=== PATIENT | female | born 1960 | race African-American/Black ===

== ENCOUNTER 2017-03-17 15:35 | Emergency (ER) | payer OTHER ==
[2017-03-17 15:40] VITALS: BMI 37.2
--- NOTE | 2017-03-17 16:18 | PDOC ---
Attending Attestation - HPI HPI: 03/18/17 00:00 The patient is a 56 year old female, with no significant past medical history, who presents to the emergency department with multiple complaints. The patient reports that she had a mammogram done approximately two weeks ago. Since then, she reports a burning sensation in both of her breasts. She describes the burning sensation as diffuse but reports that it is not exacerbated or alleviated by any factors. She states that she has not taken any medications for these symptoms. The patient is additionally reports feeling lightheaded which she states is associated with changes in position. She also reports that she has noticed the appearance of small black dots on her arms which appear to be at the bases of her hair follicles. She denies fever, chills, nausea, vomiting or diarrhea. She denies shortness of breath or chest pain. She denies changes in vision, headache, dizziness or weakness. Allergies: None reported. Past Surgical History: None reported. Social History: Former smoker (quit in 2008). Denies alcohol or drug use. - Physicial Exam PE: 03/17/17 23:49 Vitals: Triage vital signs reviewed. General Appearance: No acute distress, well nourished, well developed. Head: Atraumatic, normocephalic. Eyes: Pupils equal round reactive, extraocular movements intact. Neck: Supple. No nuchal rigidity. Chest Wall: Nontender. Cardiac: Regular rate and rhythm. No murmurs, no rubs, no gallops Lungs: Clear to auscultation bilaterally, good air movement bilaterally Abdomen: Soft, nondistended, normal bowel sounds, nontender to palpation. Extremities: Full range of motion to all extremities, no cyanosis, clubbing, or edema. Skin: Subtle blackish appearance of pores on arms bilaterally. Warm and dry, no rashes or lesions, no petechiae. Neuro: AOX3; Cranial Nerves 2-12 grossly intact. Strength intact to all extremities. Sensation intact to all extremities. Psych: Normal mood, normal affect. - Medical Decision Making 03/17/17 17:43 Documentation prepared by Thalia Stinson, acting as medical insurance collector for Bull Lyles MD. <Thalia Stinson - Last Filed: 03/18/17 00:00> - Resident Resident Name: Ralf Johnson - ED Attending Attestation I have performed the following: I have examined & evaluated the patient, The case was reviewed & discussed with the resident, I agree w/resident's findings & plan, Exceptions are as noted - Medical Decision Making Patient with vague symptomatology of bilateral breast burning status post a gram and a nonspecific skin finding of what appears to be slight darkening to the pores of the hair follicles on her arms. She was also complaining of nonspecific lightheadedness her neurologic examination was normal her EKG and lab work was unremarkable. It is possible that this is related to patient's menopause however she was advised to follow-up with her primary care doctor and DIRECTOR OF [employer]OTEL next week Findings, the need for follow-up, strict return instructions discussed with patient. <Bull Lyles - Last Filed: 03/18/17 01:17> Heart Score/ECG Review #1 ECG reviewed & interpreted by me at: 17:18 (EKG performed at 17:18 demonstrates rate of 67 bpm, normal sinus rhythm, normal axis. No T wave inversions, no ST elevations.) <Thalia Stinson - Last Filed: 03/18/17 00:00>
--- NOTE | 2017-03-17 16:40 | PDOC ---
History of Present Illness - General Chief Complaint: Lightheaded Stated Complaint: BREAST PAIN, DIZZINESS Time Seen by Provider: 03/17/17 16:00 History Source: Patient Exam Limitations: No Limitations - History of Present Illness Initial Comments: 03/17/17 16:32 The patient is a 56F with a PMH of recently diagnosed HLD who presents with multiple complaints. She is complaining of lightheadedness, bilateral burning sensation in her breasts, and skin spots. The patient states that her burning sensation started after she had a mammogram 2 weeks ago. The burning is throughout her breasts and is not exacerbated or relieved by anything. She has not taken any medications for it. She is complaining of positional lightheadedness. She is also complaining of small black dots at the bases of her hair follicles which she is unsure of the origin. She denies any fever, chills, nausea, vomiting, CP, SOB, new swelling, and rashes. Past History - Past Medical History Allergies/Adverse Reactions: Allergies Allergy/AdvReac Type Severity Reaction Status Date / Time No Known Allergies Allergy Verified 03/17/17 15:41 Home Medications: Ambulatory Orders No Home Medications 0 dose .ROUTE UTDICT 09/20/13 Meclizine HCl 25 mg PO ONCE #20 tablet 03/17/17 COPD: No Hypercholesterolemia: Yes Other medical history: obesity - Immunization History Td Vaccination: No TDAP Vaccination: No Immunization Up to Date: No - Suicide/Smoking/Psychosocial Hx Smoking Status: Yes Smoking History: Former smoker Have you smoked in the past 12 months: No Number of Cigarettes Smoked Daily: 0 If you are a former smoker, when did you quit?: 2008 Information on smoking cessation initiated: No Hx Alcohol Use: No Drug/Substance Use Hx: No Substance Use Type: None Review of Systems - Review of Systems Able to Perform ROS?: Yes Comments:: 03/17/17 17:42 GENERAL/CONSTITUTIONAL: No fever or chills. No weakness. HEAD, EYES, EARS, NOSE AND THROAT: No change in vision. No ear pain or discharge. No sore throat. GASTROINTESTINAL: No nausea, vomiting, diarrhea, constipation, or abdominal pain. GENITOURINARY: No dysuria, frequency, hematuria, or change in urination. CARDIOVASCULAR: No chest pain, palpitations, or lightheadedness. RESPIRATORY: No cough, wheezing, shortness of breath, or hemoptysis. MUSCULOSKELETAL: No joint or muscle swelling or pain. No neck or back pain. SKIN: Positive for new black spots on No rash or lesions. NEUROLOGIC: Positive for burning sensation in b/l breasts. No headache, numbness , tingling, weakness, loss of consciousness, or change in strength/sensation. ENDOCRINE: No increased thirst. No abnormal weight change. HEMATOLOGIC/LYMPHATIC: No anemia, easy bleeding, or history of blood clots. ALLERGIC/IMMUNOLOGIC: No hives or skin allergy. *Physical Exam - Vital Signs Last Vital Signs Temp Pulse Resp BP Pulse Ox 97.7 F 86 19 160/96 97 03/17/17 15:38 03/17/17 15:38 03/17/17 15:38 03/17/17 15:38 03/17/17 15:38 - Physical Exam Comments: 03/17/17 17:45 GENERAL: Well developed, well nourished. Awake and alert. No acute distress. HEENT: Normocephalic, atraumatic. Hearing grossly normal. Moist mucous membranes. NECK: Supple. Full ROM. No JVD. Carotid pulses 2+ and symmetric, without bruits. No thyromegaly. No lymphadenopathy. CARDIOVASCULAR: Regular rate and rhythm. No murmurs, rubs, or gallops. Distal pulses are 2+ and symmetric. BREAST: No tenderness to palpation or burning sensation to palpation. No gross abnormalities. PULMONARY: No evidence of respiratory distress. Lungs clear to auscultation bilaterally. No wheezing, rales or rhonchi. ABDOMINAL: Soft. Non-tender. Non-distended. No rebound or guarding. No organomegaly. Normoactive bowel sounds. GENITOURINARY: No CVA tenderness bilaterally. MUSCULOSKELETAL: Normal range of motion at all joints. No bony deformities or tenderness. EXTREMITIES: No cyanosis. No clubbing. No edema. No calf tenderness. SKIN: Warm and dry. Normal capillary refill. No rashes. No jaundice. NEUROLOGICAL: Alert, awake, appropriate. Cranial nerves 2-12 intact. No deficits to light touch and temperature in face, upper extremities and lower extremities. No motor deficits in the in face, upper extremities and lower extremities. Normoreflexic in the upper and lower extremities. Normal speech. Gait is normal without ataxia. PSYCHIATRIC: Cooperative. Good eye contact. Appropriate mood and affect. ED Treatment Course - LABORATORY CBC & Chemistry Diagram: 03/17/17 16:50 03/17/17 16:50 Medical Decision Making - Medical Decision Making 03/17/17 17:46 The patient is a 56F with a PMH of HLD who presents with multiple complaints. 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 She understands this. However, I believe most of her complaints are related to post-menopaulal hormonal changes. I would like to r/o ACS and infection. Labs pending. 03/17/17 17:57 CBC WNL. CMP WNL. Trop negative. 03/17/17 18:17 Patient states she wants something for the burning sensation and the lightheadedness. I explained the importance of follow up with her PCP and OB. She agrees. Will d/c with meclizine. *DC/Admit/Observation/Transfer Diagnosis at time of Disposition: Light-headed feeling, Breast pain in female - Discharge Dispostion Disposition: HOME Condition at time of disposition: Stable Admit: No - Prescriptions Prescriptions: Meclizine HCl 25 mg PO ONCE #20 tablet - Referrals Referrals: Jose Angel Lawrence [Primary Care Provider] - - Patient Instructions Printed Discharge Instructions: Dizziness, Nonvertigo Additional Instructions: Please return to the ER if symptoms persist, worsen, or new symptoms arise. Please follow up with your primary care physician in 2-3 days. Please follow up with your thread grinder tool in the next week. Please return to the ER if you have any signs or symptoms of chest pain, shortness of breath, uncontrollable fever, chills, nausea, vomiting, numbness, tingling, or weakness in any part of your body, changes in vision, or slurred speech. Please take your medications as prescribed. - Post Discharge Activity
[2017-03-17 17:04] LABS: BASO # 0.1 # (0.1-1); BASO % 0.9 % (0-2.0); EOS % 0.8 % (0-4.5); LYMPH # 2.5 (8-40); MCH 27.7 pg (25.7-33.7); MCHC 33.9 g/dl (32.0-36.0); MEAN CELL VOLUME 81.6 fl (80-96); MEAN PLT VOLUME 8.4 fl (7.5-11.1); MONO # 0.6 # (3.8-10.2); NEUT # 2.8 # (42.8-82.8); NEUT % 46.3 % (42.8-82.8); PLATELET COUNT 253 K/MM3 (134-434); RDW 15.3 % (11.6-15.6)
[2017-03-17 17:37] LABS: ALBUMIN 3.5 g/dl (3.4-5.0); ANION GAP 7 (8-16); BILIRUBIN,TOTAL 0.6 mg/dL (0.2-1.0); CALCIUM 8.6 mg/dL (8.5-10.1); CO2 25 mmol/L (21-32); CREATININE 0.6 mg/dL (0.55-1.02); GLUCOSE,RANDOM 83 mg/dL (74-106); SGOT/AST 16 U/L (15-37); SGPT/ALT 21 U/L (12-78); TOT PROT 7.5 g/dl (6.4-8.2)
[2017-03-17 17:39] LABS: ALK PHOS 81 U/L (45-117); CPK 98 IU/L (26-192); TROPONIN I < 0.02 ng/ml (0.00-0.05)
[2017-03-17 18:37] VITALS: BP 126/77; PULSE 74; TEMP 98.6
--- NOTE | 2017-03-18 17:09 | EKG ---
Test Reason : Blood Pressure : / mmHG Vent. Rate : 067 BPM Atrial Rate : 067 BPM P-R Int : 164 ms QRS Dur : 082 ms QT Int : 398 ms P-R-T Axes : 060 010 026 degrees QTc Int : 420 ms NORMAL SINUS RHYTHM POSSIBLE LEFT ATRIAL ENLARGEMENT BORDERLINE ECG WHEN COMPARED WITH ECG OF 05-JUL-2014 09:46, NO SIGNIFICANT CHANGE WAS FOUND Confirmed by MEHRDAD MARIN MD ([id number]) on 03/18/2017 5:09:16 PM Referred By: Confirmed By:MEHRDAD MARIN MD
== END 2017-03-17 18:37 | disposition home or self-care (01) ==
LOC: JER 15:35
DX: R42 Dizziness and giddiness (principal); N64.4 Mastodynia; E78.5 Hyperlipidemia, unspecified
CPT/HCPCS: 36415; 80053; 82550; 84484; 85025; 93005; 93010; 99282-25

== ENCOUNTER 2017-08-30 09:07 | Emergency (ER) | payer OTHER ==
[2017-08-30 09:16] VITALS: BP 146/82; PULSE 69; TEMP 98.3; BMI 38.2
--- NOTE | 2017-08-30 09:23 | PDOC ---
History of Present Illness - General Chief Complaint: Rash Stated Complaint: RASH Time Seen by Provider: 08/30/17 09:21 History Source: Patient Exam Limitations: No Limitations - History of Present Illness Initial Comments: CHIEF COMPLAINT: 56 y/o female with no significant PMH c/o rash to face. HISTORY OF PRESENT ILLNESS: The patient began using a new facial lotion a few days ago and noticed an itchy rash to her cheek bones the next day. She stopped the cream a few days ago but the rash is still present. She denies facial swelling, tongue swelling, difficulty breathing, SOB, cough and all other symptoms. She has not taken any medications for the rash. Vital signs on arrival are within normal limits. REVIEW OF SYSTEMS: GENERAL/CONSTITUTIONAL: No fever/chills. No weakness. No weight change. HEAD, EYES, EARS, NOSE AND THROAT: No change in vision. No ear pain or discharge. No sore throat. CARDIOVASCULAR: No chest pain or shortness of breath. RESPIRATORY: No cough, wheezing, or hemoptysis. MUSCULOSKELETAL: No joint or muscle swelling or pain. No neck or back pain. SKIN: +itchy rash to face PHYSICAL EXAM: VITAL_SIGNS: within normal limits GENERAL_APPEARANCE: alert, cooperative, mild obvious discomfort. ENT: No angioedema. No tongue swelling. Airway patent LUNGS: CTAB EXTREMITIES: good pulse in injured extremity, affected area on extremity has mild erythema, mild swelling, mild tenderness and no abrasions\lacerations. SKIN: Few scattered papules to b/l maxilla area. No surrounding erythema or streaking. Past History - Past Medical History Allergies/Adverse Reactions: Allergies Allergy/AdvReac Type Severity Reaction Status Date / Time No Known Allergies Allergy Verified 08/30/17 09:12 Home Medications: Ambulatory Orders Diphenhydramine HCl/Zinc Acet [Benadryl 2% Cream] 1 applic TP TID #1 tube CVA: No COPD: No Hypercholesterolemia: Yes - Immunization History Td Vaccination: No TDAP Vaccination: No Immunization Up to Date: No - Suicide/Smoking/Psychosocial Hx Smoking Status: Yes Smoking History: Former smoker Have you smoked in the past 12 months: No Number of Cigarettes Smoked Daily: 0 If you are a former smoker, when did you quit?: 2008 Information on smoking cessation initiated: No Hx Alcohol Use: No Drug/Substance Use Hx: No Substance Use Type: None *Physical Exam - Vital Signs Last Vital Signs Temp Pulse Resp BP Pulse Ox 98.3 F 69 18 146/82 100 08/30/17 09:13 08/30/17 09:13 08/30/17 09:13 08/30/17 09:13 08/30/17 09:13 Medical Decision Making - Medical Decision Making A/P: 56 y/o female with allergic reaction to new face lotion. Will send rx for benadryl cream. Instructed her to d/c the lotion. Instructed her to f/u with her doctor and return to the ER with any worsening or concerning symptoms. The patient verbalizes understanding of all instructions, has no further questions and is awaiting discharge. *DC/Admit/Observation/Transfer Diagnosis at time of Disposition: Minor allergic reaction - Discharge Dispostion Disposition: HOME Condition at time of disposition: Good - Referrals Referrals: Liborio Hale MD [Primary Care Provider] - - Patient Instructions Printed Discharge Instructions: DI for General Allergic Reactions Additional Instructions: Discharge Instructions: -Do not use facial lotion anymore -Use benadryl cream as prescribed until symptoms improve -Use over the counter Artificial Tears to help with itchy eyes -Follow up with your doctor within 1 week -Return to the ER with any worsening or concerning symptoms - Post Discharge Activity
== END 2017-08-30 10:07 | disposition home or self-care (01) ==
LOC: JERFT 09:07
DX: L23.2 Allergic contact dermatitis due to cosmetics (principal); T49.8X5A Adverse effect of other topical agents, initial encounter; Y92.038 Other place in apartment as the place of occurrence of the external cause
CPT/HCPCS: 99281-25

== ENCOUNTER 2017-11-19 21:46 | Emergency (ER) | payer OTHER ==
[2017-11-19 22:21] VITALS: TEMP 98.4; BMI 38.4
[2017-11-19] MEDS ORDERED: ACETAMINOPHEN 325 MG TABLET (FP) PO ONE (23:00)
[2017-11-19 23:18] VITALS: BP 128/70; PULSE 65
--- NOTE | 2017-11-19 23:30 | PDOC ---
History of Present Illness - General Chief Complaint: Blood Pressure Problem Stated Complaint: Blood Pressure Problem Time Seen by Provider: 11/19/17 22:52 History Source: Patient Exam Limitations: No Limitations - History of Present Illness Initial Comments: 11/19/17 23:27 The patient is a 57F with a PMH of HLD who presents to the ER with complaints of suprapubic pain and gas. The patient states that she saw her PCP this morning for gas and suprapubic pain and he sent a UA and referred her to a GI specialist. She denies any current GI complaints and denies CP, SOB, fever, chills, nausea, vomiting, vaginal bleeding and vaginal discharge. Past History - Past Medical History Allergies/Adverse Reactions: Allergies Allergy/AdvReac Type Severity Reaction Status Date / Time No Known Allergies Allergy Verified 08/30/17 09:12 Home Medications: Ambulatory Orders Diphenhydramine HCl/Zinc Acet [Benadryl 2% Cream] 1 applic TP TID #1 tube CVA: No COPD: No DVT: No Hypercholesterolemia: Yes - Immunization History Td Vaccination: No TDAP Vaccination: No Immunization Up to Date: No - Suicide/Smoking/Psychosocial Hx Smoking Status: Yes Smoking History: Former smoker Have you smoked in the past 12 months: No Number of Cigarettes Smoked Daily: 0 If you are a former smoker, when did you quit?: 2009 Information on smoking cessation initiated: No Hx Alcohol Use: No Drug/Substance Use Hx: No Substance Use Type: None Review of Systems - Review of Systems Able to Perform ROS?: Yes Comments:: 11/20/17 00:20 GENERAL/CONSTITUTIONAL: No fever or chills. No weakness. HEAD, EYES, EARS, NOSE AND THROAT: No change in vision. No ear pain or discharge. No sore throat. CARDIOVASCULAR: No chest pain, palpitations, or lightheadedness. RESPIRATORY: No cough, wheezing, shortness of breath, or hemoptysis. GASTROINTESTINAL: Positive for gas and suprapubic pain. No nausea, vomiting, diarrhea, or constipation. GENITOURINARY: No dysuria, frequency, hematuria, or change in urination. MUSCULOSKELETAL: No joint or muscle swelling or pain. No neck or back pain. SKIN: No rash or lesions. NEUROLOGIC: No headache, numbness, tingling, weakness, loss of consciousness, or change in strength/sensation. ENDOCRINE: No increased thirst. No abnormal weight change. HEMATOLOGIC/LYMPHATIC: No anemia, easy bleeding, or history of blood clots. ALLERGIC/IMMUNOLOGIC: No hives or skin allergy. Is the patient limited Faroese proficient: No *Physical Exam - Vital Signs Last Vital Signs Temp Pulse Resp BP Pulse Ox 98.4 F 65 18 128/70 99 11/19/17 22:15 11/19/17 23:16 11/19/17 23:16 11/19/17 23:16 11/19/17 23:16 - Physical Exam Comments: 11/20/17 00:21 GENERAL: Well developed, well nourished. Awake and alert. No acute distress. HEENT: Normocephalic, atraumatic. Hearing grossly normal. Moist mucous membranes. PERRLA, EOMI. No conjunctival pallor. Sclera are non-icteric. NECK: Supple. Full ROM. No JVD. CARDIOVASCULAR: Regular rate and rhythm. No murmurs, rubs, or gallops. PULMONARY: No evidence of respiratory distress. Lungs clear to auscultation bilaterally. No wheezing, rales or rhonchi. ABDOMINAL: Soft. Tenderness to deep palpation in suprapubic abdomen. Non- distended. No rebound or guarding. GENITOURINARY: No CVA tenderness bilaterally. MUSCULOSKELETAL: Normal range of motion at all joints. No bony deformities or tenderness. EXTREMITIES: No cyanosis. No clubbing. No edema. No calf tenderness or swelling. SKIN: Warm and dry. Normal capillary refill. No rashes. No jaundice. NEUROLOGICAL: Alert, awake, appropriate. Cranial nerves 2-12 intact. Normal speech. Gait is normal without ataxia. PSYCHIATRIC: Cooperative. Good eye contact. Appropriate mood and affect. Medical Decision Making - Medical Decision Making 11/20/17 00:25 The patient is a 57F with a PMH of HLD who presents to the ER for suprapubic pain and resolved gas. I have instructed her to f/u with her GI doctor. Pending UA. Pt had also made a complaint that her BP was elevated. BP in the room was 128/70's. 11/20/17 00:25 UA negative. Will d/c pt with PCP f/u. *DC/Admit/Observation/Transfer Diagnosis at time of Disposition: Suprapubic pain - Discharge Dispostion Disposition: HOME Condition at time of disposition: Stable Decision to Admit order: No - Referrals Referrals: Liborio Hale MD [Primary Care Provider] - - Patient Instructions Printed Discharge Instructions: GERD Diet Additional Instructions: Please follow up with your primary care physician in 2-3 days. Your urinalysis in the ER was normal (meaning no infection). Please return to the ER if you have any signs or symptoms of chest pain, shortness of breath, uncontrollable fever, chills, nausea, vomiting, numbness, tingling, or weakness in any part of your body, changes in vision, or slurred speech. Please return to the ER if symptoms persist, worsen, or new symptoms arise. - Post Discharge Activity
[2017-11-19] MEDS ORDERED: ACETAMINOPHEN 325 MG TABLET (FP) ONE (23:32)
[2017-11-20 00:11] LABS: URINE APPEARANCE CLEAR; URINE BILIRUBIN NEGATIVE (<2.0 mg/dL); URINE COLOR YELLOW; URINE GLUCOSE (UA) NEGATIVE (NEGATIVE); URINE KETONE NEGATIVE (NEGATIVE)
[2017-11-20 00:12] LABS: URINE LEUK ESTERASE NEGATIVE (NEGATIVE); URINE NITRITE NEGATIVE (NEGATIVE); URINE PROTEIN NEGATIVE (NEGATIVE); URINE UROBILINOGEN NORMAL mg/dL (0.2-1.0)
--- NOTE | 2017-11-20 00:53 | PDOC ---
Attending Attestation - Resident Resident Name: Ralf Johnson - ED Attending Attestation I have performed the following: I have examined & evaluated the patient, The case was reviewed & discussed with the resident, I agree w/resident's findings & plan, Exceptions are as noted - Medical Decision Making 11/20/17 00:53 Pt was treated and released <RubiGibran - Last Filed: 11/20/17 00:52> - HPI HPI: 11/20/17 00:58 The patient is a 57 year old female with a significant PMH of HLD presenting with suprapubic gas pain since earlier today. Patient states she saw her PCP for similar symptoms. As per patient, the PCP did a UA but did not tell her the results. Patient has no current complaints. The patient denies chest pain, shortness of breath, headache and dizziness. Denies fever, chills, nausea, vomit, diarrhea and constipation. Denies vaginal bleeding or discharge, dysuria, frequency, urgency and hematuria. Allergies: NKA Past surgical history: None reported. Social history: No reported alcohol, drug, or cigarette use. PCP: Dr. Hale - Physicial Exam PE: 11/20/17 00:53 GENERAL: Well-appearing, well-nourished. No apparent distress. HEENT: Normocephalic, atraumatic. PERRL, EOM intact. CARDIOVASCULAR: Normal S1, S2. Regular rate and rhythm. PULMONARY: Clear to auscultation bilaterally. ABDOMEN: Soft, non-distended. (+) Mild suprapubic tenderness. EXTREMITIES: Normal ROM in all four extremities. No gross deformities. SKIN: Warm, dry. No rash NEUROLOGICAL: No focal neurological deficits. <Cynthia Troy - Last Filed: 11/20/17 00:58>
== END 2017-11-20 00:48 | disposition home or self-care (01) ==
LOC: JER 21:46
DX: R10.30 Lower abdominal pain, unspecified (principal); R14.1 Gas pain; E78.5 Hyperlipidemia, unspecified
CPT/HCPCS: 81003; 87086; 99281-25

== ENCOUNTER 2018-03-02 21:27 | Emergency (ER) | payer OTHER ==
[2018-03-02 21:38] VITALS: TEMP 99; BMI 36.0
[2018-03-02 22:20] VITALS: BP 108/62; PULSE 63
--- NOTE | 2018-03-02 22:21 | PDOC ---
History of Present Illness - General Chief Complaint: Chest Pain Stated Complaint: CHEST PAIN Time Seen by Provider: 03/02/18 21:51 - History of Present Illness Initial Comments: 03/02/18 23:17 57 year old female with no significant PMH presenting with one episode of mild chest pain that self resolved earlier today but two months of sleep trouble where she has trouble initiating sleep at night but is able to stay asleep once she is asleep. She has lost weight over the past two years because of an active diet but denies substance use or OTC weight loss supplements. Denies sweating, fevers, chills, nausea, vomiting, diarrhea, SOB, or other symptoms. Past History - Past Medical History Allergies/Adverse Reactions: Allergies Allergy/AdvReac Type Severity Reaction Status Date / Time No Known Allergies Allergy Verified 03/02/18 21:30 Home Medications: Ambulatory Orders traZODone HCL [Trazodone HCl] 50 mg PO HS 03/02/18 CVA: No COPD: No DVT: No Hypercholesterolemia: Yes - Immunization History Td Vaccination: No TDAP Vaccination: No Immunization Up to Date: No - Suicide/Smoking/Psychosocial Hx Smoking Status: Yes Smoking History: Former smoker Have you smoked in the past 12 months: No Number of Cigarettes Smoked Daily: 0 If you are a former smoker, when did you quit?: 2008 Information on smoking cessation initiated: No Hx Alcohol Use: No Drug/Substance Use Hx: No Substance Use Type: None Review of Systems - Review of Systems Constitutional: No: Chills, Diaphoresis, Fever HEENTM: No: Eye Pain, Blurred Vision Respiratory: No: Cough, Orthopnea, Shortness of Breath Cardiac (ROS): No: Edema, Irregular Heart Rate ABD/GI: No: Diarrhea, Nausea, Vomiting : No: Burning, Dysuria, Discharge Musculoskeletal: No: Back Pain, Gout, Joint Pain Integumentary: No: Bruising, Erythema, Flushing, Lesions, Lumps Neurological: No: Numbness, Paresthesia, Tremors Psychiatric: No: Anxiety, Depression Endocrine: No: Flushing, Increased Urine Hematologic/Lymphatic: No: Anemia, Blood Clots, Easy Bleeding *Physical Exam - Vital Signs Last Vital Signs Temp Pulse Resp BP Pulse Ox 99.0 F 63 18 108/62 100 03/02/18 21:31 03/02/18 22:19 12/08/18 22:19 03/02/18 22:19 03/02/18 22:19 - Physical Exam General Appearance: Yes: Nourished, Appropriately Dressed. No: Apparent Distress HEENT: positive: EOMI, CAS[place], Normal ENT Inspection, Normal Voice Neck: positive: Trachea midline, Normal Thyroid, Supple. negative: Tender, Rigid Respiratory/Chest: positive: Lungs Clear, Normal Breath Sounds. negative: Chest Tender, Respiratory Distress, Accessory Muscle Use Cardiovascular: positive: Regular Rhythm, Regular Rate Gastrointestinal/Abdominal: positive: Normal Bowel Sounds, Flat, Soft. negative : Tender Lymphatic: negative: Adenopathy, Tenderness Musculoskeletal: positive: Normal Inspection. negative: CVA Tenderness, Decreased Range of Motion Extremity: positive: Normal Capillary Refill, Normal Inspection, Normal Range of Motion. negative: Tender Integumentary: positive: Normal Color, Dry, Warm Neurologic: positive: Fully Oriented, Alert, Normal Mood/Affect, Normal Response , Motor Strength 5/5 Moderate Sedation - Procedure Monitoring Vital Signs: Procedure Monitoring Vital Signs Temperature 99.0 F 03/02/18 21:31 Pulse Rate 63 03/02/18 22:19 Respiratory Rate 18 03/02/18 22:19 Blood Pressure 108/62 03/02/18 22:19 O2 Sat by Pulse Oximetry (%) 100 03/02/18 22:19 ED Treatment Course - LABORATORY CBC & Chemistry Diagram: 03/02/18 22:18 03/02/18 22:18 Medical Decision Making - Medical Decision Making 57 year old female with trouble falling asleep for the past two months and one episode of mild chest pain. All labs WNL and EKG showing rate 62, LA inteval 138 , QRS 100, QTc 401, normal axis, and no ST/ T wave changes. Will DC with PCP follow up. 03/02/18 23:23 *DC/Admit/Observation/Transfer Diagnosis at time of Disposition: Chest pain Qualifiers: Chest pain type: unspecified Qualified Code(s): R07.9 - Chest pain, unspecified Insomnia Qualifiers: Insomnia type: unspecified Qualified Code(s): G47.00 - Insomnia, unspecified - Discharge Dispostion Disposition: HOME Condition at time of disposition: Improved Decision to Admit order: No - Referrals Referrals: [facility] [place] [facility] [place] [facility] [Provider Group] - Patient Instructions Printed Discharge Instructions: DI for Atypical Chest Pain Additional Instructions: Please use your sleep medication and please follow up with you PCP. Please return to the ED if you have new or worsening symptoms. - Post Discharge Activity
[2018-03-02 22:30] LABS: BASO % 0.8 % (0-2.0); HEMATOCRIT 36.9 % (32.4-45.2); HEMOGLOBIN 13.1 GM/dL (10.7-15.3); LYMPH % 44.6 % (8-40); MCH 28.6 pg (25.7-33.7); MCHC 35.5 g/dl (32.0-36.0); MEAN CELL VOLUME 80.6 fl (80-96); MEAN PLT VOLUME 8.1 fl (7.5-11.1); MONO % 7.5 % (3.8-10.2); NEUT % 46.1 % (42.8-82.8); PLATELET COUNT 272 K/MM3 (134-434); RBC 4.57 M/mm3 (3.60-5.2); RDW 16.2 % (11.6-15.6); WHITE BLOOD COUNT 6.7 K/mm3 (4.0-10.0)
[2018-03-02 22:43] LABS: INR 1.11 (0.83-1.09); PROTHROMBIN TIME (PATIENT) 13.1 SEC (9.7-13.0)
[2018-03-02 22:57] LABS: ALBUMIN 3.5 g/dl (3.4-5.0); ALK PHOS 77 U/L (45-117); ANION GAP 7 MMOL/L (8-16); BILIRUBIN,TOTAL 0.5 mg/dL (0.2-1); BLOOD UREA NITROGEN 15 mg/dL (7-18); CALCIUM 8.6 mg/dL (8.5-10.1); CHLORIDE 104 mmol/L (98-107); CO2 29 mmol/L (21-32); CREATININE 0.7 mg/dL (0.55-1.3); GLUCOSE,RANDOM 80 mg/dL (74-106); MAGNESIUM 2.1 mg/dL (1.8-2.4); POTASSIUM 4.6 mmol/L (3.5-5.1); SGOT/AST 14 U/L (15-37); SGPT/ALT 19 U/L (13-61); SODIUM 141 mmol/L (136-145); TOT PROT 7.4 g/dl (6.4-8.2)
--- NOTE | 2018-03-02 23:25 | PDOC ---
Attending Attestation - Resident Resident Name: Marguerite Saucedocherylagustin - ED Attending Attestation I have performed the following: I have examined & evaluated the patient, The case was reviewed & discussed with the resident, I agree w/resident's findings & plan - Medical Decision Making 03/02/18 23:16 Pt states that she has been unable to sleep; when she mentioned this to her PMD , he wanted her to get an EKG. She recalled this today when she felt a momentary twinge of CP while she was sitting at a desk at work. Came to the ER to get checked out. She states that she had been on a diet eating smoothies and fruits dana small evening meal and soup. She lost 30 lbs. States that recently she stopped her diet because she thinks it may be causing her insomnia. Pt's labs, EKG, CXR all normal. Pt will be discharged back to her PMD. <Katia Waters - Last Filed: 03/02/18 23:26> - HPI HPI: 03/02/18 23:26 The patient is a 57 year old female, with no significant PMH who presents to the emergency department with chest pain this afternoon. Patient describes the chest pain this afternoon as sharp, lasting a few minutes that has now resolved. Patient denies any precipitating factors. Patient states she has not been sleeping well at home over the last few days. Patient admits to recent weight loss after changing her diet. Patient notes the chest pain has resolved on its own and is currently asymptomatic. Patients PCP told her to come to the ER for an EKG. The patient denies chest pain, shortness of breath, headache and dizziness. Denies fever, chills, nausea, vomit, diarrhea and constipation. Denies dysuria, frequency, urgency and hematuria. Allergies: NKA Past surgical history: None reported. Social history: No reported alcohol, drug or cigarette use. - Physicial Exam PE: 03/02/18 23:27 GENERAL: Awake, alert, and fully oriented, in no acute distress. (+) Overweight. HEAD: No signs of trauma EYES: PERRLA, EOMI, sclera anicteric, conjunctiva clear ENT: Auricles normal inspection, hearing grossly normal, nares patent, oropharynx clear without exudates. Moist mucosa NECK: Normal ROM, supple, no lymphadenopathy, JVD, or masses LUNGS: Breath sounds equal, clear to auscultation bilaterally. No wheezes, and no crackles HEART: Regular rate and rhythm, normal S1 and S2, no murmurs, rubs or gallops ABDOMEN: Soft, nontender, normoactive bowel sounds. No guarding, no rebound. No masses EXTREMITIES: Normal range of motion, no edema. No clubbing or cyanosis. No cords, erythema, or tenderness NEUROLOGICAL: Cranial nerves II through XII grossly intact. Normal speech, normal gait SKIN: Warm, Dry, normal turgor, no rashes or lesions noted. <Cynthia Troy - Last Filed: 03/02/18 23:27>
--- NOTE | 2018-03-03 17:16 | EKG ---
Test Reason : Blood Pressure : / mmHG Vent. Rate : 053 BPM Atrial Rate : 053 BPM P-R Int : 158 ms QRS Dur : 086 ms QT Int : 414 ms P-R-T Axes : 050 026 037 degrees QTc Int : 388 ms SINUS BRADYCARDIA OTHERWISE NORMAL ECG WHEN COMPARED WITH ECG OF 17-MAR-2017 17:18, NO SIGNIFICANT CHANGE WAS FOUND Confirmed by AYALA CHAVIRA MD ([id number]) on 03/03/2018 5:16:02 PM Referred By: Confirmed By:AYALA CHAVIRA MD
== END 2018-03-02 23:43 | disposition home or self-care (01) ==
LOC: JER 21:27
DX: R07.9 Chest pain, unspecified (principal); G47.00 Insomnia, unspecified
CPT/HCPCS: 36415; 71046-TC-FY; 80053; 82550; 83735; 84443; 84484; 85025; 85610; 93005; 93010; 99285-25

== ENCOUNTER 2018-12-18 21:08 | Observation (INO) | payer SELFPAY ==
[2018-12-18 21:12] VITALS: BMI 38.2
[2018-12-18] MEDS ORDERED: ASPIRIN 81 MG CHEWABLE TABLETS PO ONE (21:45)
[2018-12-18] MEDS ORDERED: ASPIRIN 81 MG CHEWABLE TABLETS ONE (22:27)
[2018-12-18] MEDS ORDERED: ACETAMINOPHEN 325 MG TABLET (FP) PO ONE (23:46)
[2018-12-18] MEDS ORDERED: ACETAMINOPHEN 325 MG TABLET (FP) ONE (23:49)
--- NOTE | 2018-12-18 23:56 | PDOC ---
History of Present Illness - General Chief Complaint: Chest Pain Stated Complaint: SEVERE CHEST PAIN Time Seen by Provider: 12/18/18 21:55 - History of Present Illness Initial Comments: 12/18/18 23:56 This is a 58 year old female with no significant PMH. She presented to the ER with complaints of episodic chest pain since this afternoon, and headaches over the past 1 week. She states that the chest pain is substernal, sudden in onset, intermittent in nature with 6 total episodes since yesterday and with each episode lasting for a few seconds. The pain is 7/10 in intensity, sharp in quality, non-radiating, and alleviated by applying pressure. She complains of associated dizziness, palpitations, and has not had a recent stress test or echo done. The headache is diffuse, started suddenly last week, constant in nature, pressing in quality, radiates to her left eye, and associated with itching on her scalp. She also complains of edema in her upper extremities, and dysuria for the past few days. She states that her PCP prescribed 20mg Lasix daily, today is her 9 day without any relief of her symptoms. Past History - Travel Traveled outside of the country in the last 30 days: No Close contact w/someone who was outside of country & ill: No - Past Medical History Allergies/Adverse Reactions: Allergies Allergy/AdvReac Type Severity Reaction Status Date / Time No Known Allergies Allergy Verified 12/18/18 21:12 Home Medications: Ambulatory Orders Aspirin [ASA -] 81 mg PO DAILY 12/19/18 CVA: No COPD: No DVT: No Hypercholesterolemia: Yes - Immunization History Td Vaccination: No TDAP Vaccination: No Immunization Up to Date: No - Psycho Social/Smoking Cessation Hx Smoking Status: Yes Smoking History: Never smoked Have you smoked in the past 12 months: No Number of Cigarettes Smoked Daily: 0 If you are a former smoker, when did you quit?: 2008 Hx Alcohol Use: No Drug/Substance Use Hx: No Substance Use Type: None Review of Systems - Review of Systems Constitutional: No: Symptoms Reported, See HPI, Chills, Diaphoresis, Fever, Loss of Appetite, Malaise, Night Sweats, Weakness, Weight Stable, Unintentional Wgt. Loss, Unexplained wgt Loss, Other HEENTM: No: Symptoms Reported, See HPI, Eye Pain, Blurred Vision, Tearing, Recent change in vision, Double Vision, Cataracts, Ear Pain, Ocular Prothesis, Ear Discharge, Nose Pain, Nose Congestion, Tinnitus, Nose Bleeding, Hearing Loss , Throat Pain, Throat Swelling, Mouth Pain, Dental Problems, Difficulty Swallowing, Mouth Swelling, Other Respiratory: No: Symptoms reported, See HPI, Cough, Orthopnea, Shortness of Breath, SOB with Exertion, SOB at Rest, Stridor, Wheezing, Productive cough, Hemoptysis, Other Cardiac (ROS): Yes: Chest Pain, Palpitations ABD/GI: No: Symptoms Reported, See HPI, Abdominal Distended, Abd. Pain w/ defecation, Blood Streaked Bowels, Constipated, Diarrhea, Difficulty Swallowing , Nausea, Poor Appetite, Poor Fluid Intake, Rectal Bleeding, Vomiting, Indigestion, Abdominal cramping, Tarry Stools, Other : Yes: Dysuria Musculoskeletal: No: Symptoms Reported, See HPI, Back Pain, Gout, Joint Pain, Joint Swelling, Muscle Pain, Muscle Weakness, Neck Pain, Joint Stiffness, Other Neurological: Yes: Headache, Dizziness Psychiatric: No: Anxiety, Depression, Frequent Crying, Stressors, Sleep Pattern Change, Emotional Problems, Mood Swings, Change in Appetite, Other Endocrine: No: Symptoms Reported, See HPI, Excessive Sweating, Flushing, Intolerance to Cold, Intolerance to Heat, Increased Hunger, Increased Thirst, Increased Urine, Unexplained Weight Gain, Unexplained Weight Loss, Change in Weight, Other Hematologic/Lymphatic: No: Symptoms Reported, See HPI, Anemia, Blood Clots, Easy Bleeding, Easy Bruising, Bleeding Diathesis, Lymph Node Abnormalities, Swollen Glands, Other *Physical Exam - Vital Signs Last Vital Signs Temp Pulse Resp BP Pulse Ox 98.3 F 65 18 140/87 98 12/18/18 21:09 12/18/18 21:09 12/18/18 21:09 12/18/18 21:09 12/18/18 21:09 - Physical Exam Comments:: 12/19/18 04:12 Orthostatic vitals: supine 131/69 (HR 86), sitting 124/75 (HR 90), standing 136/ 88 (HR 102) General: AOx3 Head: No signs of trauma, erythema Lungs: Clear B/L CVS: NSR RRR GI: Soft, suprapubic tenderness, no CVA tenderness Extremities: No edema noted Neuro: Motor 5/5 sensations intact Breast: No erythema, swelling, lumps, or axillary lymphadenopathy Heart Score/ECG Review - Electrocardiogram EKG: Normal - Age Age: 45-65 - Risk Factors Risk Factors Heart Score: Yes Hx Hypercholesterolemia, Yes Smoking History - Troponin Troponin: </= normal limit - ECG Intrepretation Rhythm: Regular Rhythm - [place]: Normal ED Treatment Course - LABORATORY CBC & Chemistry Diagram: 12/19/18 00:00 12/19/18 00:00 - RADIOLOGY Radiology Studies Ordered: Category Date Time Status HEAD CT WITHOUT CONTRAST [CT] Stat CT Scan 12/19/18 00:01 Ordered - Medications Given in the ED: ED Medications Discontinued Medications Generic Name Dose Route Start Last Admin Trade Name Freq PRN Reason Stop Dose Admin Aspirin 162 mg 12/18/18 21:45 12/18/18 22:45 Asa - PO 12/18/18 21:46 162 mg ONCE ONE Administration Medical Decision Making - Medical Decision Making 12/19/18 01:45 #Chest Pain - CBC/CMP - ASA 162mg - CXR - EKG: - Troponin x1 negative - d Dimer to r/o PE: 574 which is under the age adjusted threshold of 600, will not do Chest CTA #Headache - CT Head: NAP - Tylenol 650mg #Dysuria - UA: 12/19/18 01:53 Discharge - Discharge Information Problems reviewed: Yes Clinical Impression/Diagnosis: Chest pain, Suprapubic pain Condition: Guarded - Admission Yes - Follow up/Referral - Patient Discharge Instructions - Post Discharge Activity
--- NOTE | 2018-12-19 00:22 | PDOC ---
Documentation entered by Michelle Upton SCRIBE, acting as scribe for Riley Boss MD. Riley Boss MD: This documentation has been prepared by the Alexsandra patricia Xhesika, SCRIBE, under my direction and personally reviewed by me in its entirety. I confirm that the documentation accurately reflects all work, treatment, procedures, and medical decision making performed by me. Attending Attestation - Resident Resident Name: TeoenriqueMelo - ED Attending Attestation I have performed the following: I have examined & evaluated the patient, The case was reviewed & discussed with the resident, I agree w/resident's findings & plan, Exceptions are as noted - HPI HPI: 12/19/18 00:01 The patient is a 58 year old female with a significant PMH of HLD who presents to the emergency department for 1 day of chest pain. Patient notes she endorsed 6 episodes of chest pain lasting a few seconds before self resolving, described as severe and sharp. Patient notes 1 week of headache. The patient denies shortness of breath, and dizziness. Denies fever, chills, cough, nausea, vomiting, diarrhea and constipation. Denies dysuria, frequency, urgency and hematuria. Allergies: NKDA - Physicial Exam PE: 12/19/18 00:19 pt s awake, alert, obesse, nad nc, atr perrla, eomi no jvd cta rr no extr edema cn ii-xii groslly intact, motor:5/5x4, gait-stable - Medical Decision Making 12/19/18 00:20 Patient 58-year-old female with history of hypercholesterolemia who presents with multiple complains including atraumatic intermittent throbbing headache for the past week, mild currently, with no previous history of headaches. In the ER, patient is noted to have no focal neurological deficits. Will obtain CT of head to rule out intracranial hemorrhage versus mass. I do not suspect subarachnoid hemorrhage or meningitis at this time. Patient also complaining of intermittent sharp chest pain associated with palpitations. Differential diagnoses ACS versus PE. Patient is low probability for PE and d-dimer will be obtained. Will obtain serial cardiac enzymes. EKG reveals no evidence of acute ischemia at this time. Patient is received aspirin prior to my evaluation. We' ll administer Tylenol for headache. Likely placement in observation/telemetry for serial cardiac enzymes and cardiac consult. 12/19/18 01:32 age adjusted d-dimer is less then [address] on tele/obs for cardiac eval , serial enzymes.
[2018-12-19 00:39] LABS: BASO % 0.8 % (0-2.0); EOS % 1.9 % (0-4.5); HEMATOCRIT 35.6 % (32.4-45.2); HEMOGLOBIN 12.2 GM/dL (10.7-15.3); LYMPH % 51.7 % (8-40); MCH 28.3 pg (25.7-33.7); MCHC 34.4 g/dl (32.0-36.0); MEAN CELL VOLUME 82.1 fl (80-96); MEAN PLT VOLUME 8.4 fl (7.5-11.1); MONO % 7.4 % (3.8-10.2); NEUT % 38.2 % (42.8-82.8); PLATELET COUNT 234 K/MM3 (134-434); RBC 4.33 M/mm3 (3.60-5.2); RDW 15.5 % (11.6-15.6); WHITE BLOOD COUNT 6.5 K/mm3 (4.0-10.0)
[2018-12-19 01:01] LABS: URINE APPEARANCE CLEAR; URINE BILIRUBIN NEGATIVE (NEGATIVE); URINE COLOR YELLOW; URINE GLUCOSE (UA) NEGATIVE (NEGATIVE); URINE KETONE NEGATIVE (NEGATIVE); URINE LEUK ESTERASE NEGATIVE (NEGATIVE); URINE NITRITE NEGATIVE (NEGATIVE); URINE PROTEIN NEGATIVE (NEGATIVE); URINE UROBILINOGEN 0.2 mg/dL (0.2-1.0)
[2018-12-19 01:05] LABS: INR 1.11 (0.83-1.09); PROTHROMBIN TIME (PATIENT) 13.1 SEC (9.7-13.0)
[2018-12-19 01:06] LABS: ALBUMIN 3.3 g/dl (3.4-5.0); BILIRUBIN,TOTAL 0.6 mg/dL (0.2-1); BLOOD UREA NITROGEN 21.7 mg/dL (7-18); CALCIUM 8.5 mg/dL (8.5-10.1); CREATININE 0.7 mg/dL (0.55-1.3); MAGNESIUM 2.3 mg/dL (1.8-2.4); POTASSIUM 4.2 mmol/L (3.5-5.1)
--- NOTE | 2018-12-19 04:20 | PN ---
Teaching Attending Note Name of Resident: Prasad Diaz ATTENDING PHYSICIAN STATEMENT I saw and evaluated the patient. I reviewed the resident's note and discussed the case with the resident. I agree with the resident's findings and plan as documented. SUBJECTIVE: Patient is a 58 year old woman with no significant PMH who presents to the ER with complaints of episodic chest pain since this afternoon, and headaches over the past 1 week. She states that the chest pain is substernal, sudden in onset, intermittent in nature with 6 total episodes since yesterday and with each episode lasting for a few seconds. The pain is 7/10 in intensity, sharp in quality, non-radiating, and alleviated by applying pressure. She complains of associated dizziness, palpitations, and has not had a recent stress test or echo done. The headache is diffuse, started suddenly last week, constant in nature, pressing in quality, radiates to her left eye, and associated with itching on her scalp. She also complains of edema in her upper extremities, and dysuria for the past few days. She states that her PCP prescribed 20mg Lasix daily, today is her 9th day without any relief of her symptoms. OBJECTIVE: Alert Vital Signs Period Temp Pulse Resp BP Sys/[place] Pulse Ox Last 24 Hr 98.3 F 65 18 140/87 98 HEENT: No Jaundice, eye redness or discharge, PERRLA, EOMI. Normocephalic, atraumatic. External ears are normal and hearing is grossly intact. No nasal discharge. Neck: Supple, nontender. No palpable adenopathy or thyromegaly. No JVD Chest: Good effort. Clear to auscultation and percussion. Heart: Regular. No S3, rub or murmur Abdomen: Not distended, soft, nontender and no HSM. No rebound or guarding. Normal bowel sounds. Ext: Peripheral pulses intact. No leg edema. Swollen elbows. Mildly tender. Skin: Warm and dry. No petechiae, rash or ecchymosis. Neuro: Alert. Oriented x3. CN 2-12 grossly intact. Sensation grossly intact in all four extremities and DTR are symmetric. Psych: Appropriate mood and affect. Good insight. Home Medications Medication Instructions Recorded Aspirin [ASA -] 81 mg PO DAILY 12/19/18 Abnormal Lab Results 12/19/18 12/19/18 12/19/18 00:00 00:00 00:00 Neutrophils % 38.2 L Lymphocytes % 51.7 H PT with INR 13.10 H INR 1.11 H D-Dimer Chloride 108 H Anion Gap 7 L BUN 21.7 H Albumin 3.3 L 12/19/18 00:00 Neutrophils % Lymphocytes % PT with INR INR D-Dimer 574 H Chloride Anion Gap BUN Albumin ASSESSMENT AND PLAN: 1. Chest pain - Cause unclear. EKG is NSR with no significant ST-T wave changes and initial troponin is negative. Will admit to telemetry to rule out ACS, get ECHO and fasting lipids. Consult cardiology. Lymphocytosis is unexplained. May have vasculitis or an autoimmune disorder. Will get CAN, ESR and CRP. CXR shows borderline cardiomegaly with no infiltrates. Headache resolved in the ER with tylenol and head CT did not show any acute abnormality. Will get kidney/bladder sonogram and HbA1c to evaluate polyuria and refer to urology as outpatient if it persists. Though she does not have an official diagnosis of hypertension, her BP is high - ?stress-induced. Patient counseled on the injurious effects of uncontrolled hypertension. Nonpharmacologic measures to control hypertension like weight loss , salt restriction and exercise discussed. Importance of adherence to treatment regimen and attainment of normotension emphasized. Will continue comprehensive care for all of patients comorbid conditions. 2. Hypoalbuminemia - Possibly due to combined effects of malnutrition and inflammation associated with comorbid chronic conditions. Will ensure adequate dietary protein intake and also consult welding machine operator thermit. 3. Obesity Counseled on the risks associated with obesity. Will provide patient all the necessary assistance, counseling and positive reinforcement to facilitate weight loss. Consult welding machine operator thermit. 4. DVT prophylaxis - Lovenox 40 mg SQ q 24 hours. 5. Advance directives - Full code
--- NOTE | 2018-12-19 06:18 | HP ---
CHIEF COMPLAINT: chest pain, palpitations PCP: HISTORY OF PRESENT ILLNESS: Patient is a 58 year old female with history of hyperlipidema, presents with complain of chest pain. Patient states pain began yesterday afteroon while she was sitting down. Describes sharp left sided chest pain lasting few seconds before spontaneously resolving. Pain is nonradiating, and is not pleuritic. She endorses associated palpitations, and lightheadedness with headache. She has not attempted any palliative measures. She denies prior occurrence of similar symptoms. Patient denies any cardiac history, or any prior cardiac workup. Denies subjective fevers, chills, shortness of breath, abdominal pain, nausea, vomiting. Of note, patient also admits bilateral elbow swelling ongoing for past few weeks. She states her primary care physician gave her Lasix 20mg for 10 days course (completed 9 days) for the swelling. ER course was notable for: (1) EKG; NSR, without ischemic changes (2) Troponin 0.02 (3) PAST MEDICAL HISTORY: hyperlipidmia PAST SURGICAL HISTORY: denies Social History: Smoking: former social smoker; quit at 43 years old Alcohol: denies Drugs: denies Allergies No Known Allergies Allergy (Verified 12/18/18 21:12) HOME MEDICATIONS: Home Medications Medication Instructions Recorded Aspirin [ASA -] 81 mg PO DAILY 12/19/18 REVIEW OF SYSTEMS CONSTITUTIONAL: Absent: fever, chills, diaphoresis, generalized weakness, malaise, loss of appetite, weight change HEENT: Absent: rhinorrhea, nasal congestion, throat pain, throat swelling, difficulty swallowing, mouth swelling, ear pain, eye pain, visual changes CARDIOVASCULAR: Admits: chest pain, palpitaitons. Absent: syncope, irregular heart rate, lightheadedness, peripheral edema RESPIRATORY: Absent: cough, shortness of breath, dyspnea with exertion, orthopnea, wheezing, stridor, hemoptysis GASTROINTESTINAL: Absent: abdominal pain, abdominal distension, nausea, vomiting, diarrhea, constipation, melena, hematochezia GENITOURINARY: Absent: dysuria, frequency, urgency, hesitancy, hematuria, flank pain, genital pain MUSCULOSKELETAL: Absent: myalgia, arthralgia, joint swelling, back pain, neck pain SKIN: Absent: rash, itching, pallor HEMATOLOGIC/IMMUNOLOGIC: Absent: easy bleeding, easy bruising, lymphadenopathy, frequent infections ENDOCRINE: Absent: unexplained weight gain, unexplained weight loss, heat intolerance, cold intolerance NEUROLOGIC: Admits: headache. Absent: focal weakness or paresthesias, dizziness, unsteady gait, seizure, mental status changes, bladder or bowel incontinence PSYCHIATRIC: Absent: anxiety, depression, suicidal or homicidal ideation, hallucinations. PHYSICAL EXAMINATION Vital Signs - 24 hr 12/18/18 21:09 Temperature 98.3 F Pulse Rate 65 Respiratory 18 Rate Blood Pressure 140/87 O2 Sat by Pulse 98 Oximetry (%) GENERAL: The patient is awake, alert, and fully oriented, in no acute distress. HEAD: Normocephalic, atraumatic. EYES: PERRL, extraocular movements intact, sclera anicteric, conjunctiva clear. ENT: Oropharynx clear, without erythema or exudates. Moist mucous membranes. NECK: Trachea midline, full range of motion. Supple without lymphadenopathy. LUNGS: Breath sounds equal, clear to auscultation bilaterally, no wheezes, no crackles. No accessory muscle use. HEART: Regular rate and rhythm, S1, S2 with holosystolic murmur auscultated ABDOMEN: Soft, nondistended, nontender to light and deep palpation x4 quadrants , no rebound tenderness, no guarding. Normoactive bowel sounds x4 quadrants. no hepatosplenomegaly, no masses. EXTREMITIES: 2+ radial, dorsalis pedis pulses bilaterally. Warm, well-perfused. No lower extremity edema bilaterally. NEUROLOGICAL: Cranial nerves II through XII grossly intact. Normal speech. No gross focal deficits. PSYCH: Normal mood, normal affect upon my encounter. SKIN: Warm, dry. Laboratory Results - last 24 hr 12/19/18 12/19/18 12/19/18 00:00 00:00 00:00 WBC 6.5 RBC 4.33 Hgb 12.2 Hct 35.6 MCV 82.1 MCH 28.3 MCHC 34.4 RDW 15.5 Plt Count 234 MPV 8.4 Absolute Neuts (auto) 2.5 Neutrophils % 38.2 L Lymphocytes % 51.7 H Monocytes % 7.4 Eosinophils % 1.9 D Basophils % 0.8 Nucleated RBC % 0 PT with INR INR D-Dimer Sodium 143 Potassium 4.2 Chloride 108 H Carbon Dioxide 28 Anion Gap 7 L BUN 21.7 H Creatinine 0.7 Est GFR (CKD-EPI)AfAm 109.15 Est GFR (CKD-EPI)NonAf 94.17 Random Glucose 91 Calcium 8.5 Magnesium 2.3 Total Bilirubin 0.6 AST 22 ALT 22 Alkaline Phosphatase 90 Creatine Kinase 146 Troponin I < 0.02 Total Protein 7.0 Albumin 3.3 L Urine Color Urine Appearance Urine pH Ur Specific [place] Urine Protein Urine Glucose (UA) Urine Ketones Urine Blood Urine Nitrite Urine Bilirubin Urine Urobilinogen Ur Leukocyte Esterase 12/19/18 12/19/18 12/19/18 00:00 00:00 00:05 WBC RBC Hgb Hct MCV MCH MCHC RDW Plt Count MPV Absolute Neuts (auto) Neutrophils % Lymphocytes % Monocytes % Eosinophils % Basophils % Nucleated RBC % PT with INR 13.10 H INR 1.11 H D-Dimer 574 H Sodium Potassium Chloride Carbon Dioxide Anion Gap BUN Creatinine Est GFR (CKD-EPI)AfAm Est GFR (CKD-EPI)NonAf Random Glucose Calcium Magnesium Total Bilirubin AST ALT Alkaline Phosphatase Creatine Kinase Troponin I Total Protein Albumin Urine Color Yellow Urine Appearance Clear Urine pH 5.0 Ur Specific [place] 1.015 Urine Protein Negative Urine Glucose (UA) Negative Urine Ketones Negative Urine Blood Negative Urine Nitrite Negative Urine Bilirubin Negative Urine Urobilinogen 0.2 Ur Leukocyte Esterase Negative ASSESSMENT/PLAN: Patient is a 58 year old female with history of hyperlipidema, presents with complain of chest pain. Atypical chest pain -EKG normal sinus rhythm without ischemic changes -Initial troponin 0.02. Will trend -D-dimer 574, however below age- adjusted threshold -Cardiac ECHO -Cardiology evaluation (Dr. Mckeon) -Cardiac monitoring -Given joint swelling, considering inflammatory/ rheumatologic etiology of atypical chest pain. Follow ESR, CRP, CAN, and uric acid Headache -Currently resolved with Acetaminophen -CT head negative for acute pathology Dysuria, polyuria -UA not suggestive of urinary tract infection -Follow urine cultures -Renal US -Monitor off antibiotics. Given polyuria, polydipsia, will follow HbA1c. Hyperlipidemia -Patient currently not on statin due to subjective complaints of numbness. -Fasting lipid panel. FEN -No IV fluids indicated -Follow CMP, replete as necessary -Sodium controlled diet Prophylaxis -Lovenox 40mg subq daily Disposition -Admit telemetry observation Visit type - Emergency Visit Emergency Visit: Yes ED Registration Date: 12/19/18 Care time: The patient presented to the Emergency Department on the above date and was hospitalized for further evaluation of their emergent condition. - New Patient This patient is new to me today: Yes Date on this admission: 12/19/18 - Critical Care Critical Care patient: No ATTENDING PHYSICIAN STATEMENT I saw and evaluated the patient. I reviewed the resident's note and discussed the case with the resident. I agree with the resident's findings and plan as documented. SUBJECTIVE: OBJECTIVE: ASSESSMENT AND PLAN:
[2018-12-19 06:53] VITALS: TEMP 97.9
[2018-12-19] MEDS ORDERED: ACETAMINOPHEN 325 MG TABLET (FP) PO PRN (07:33)
--- NOTE | 2018-12-19 08:59 | HOSP ---
Physical Examination Vital Signs: Vital Signs Temperature 97.9 F 12/19/18 06:45 Pulse Rate 59 L 12/19/18 06:45 Respiratory Rate 16 12/19/18 06:45 Blood Pressure 133/72 12/19/18 06:45 O2 Sat by Pulse Oximetry (%) 100 12/19/18 06:45 Labs: CBC, BMP 12/19/18 00:00 12/19/18 00:00
--- NOTE | 2018-12-19 09:44 | EKG ---
Test Reason : Blood Pressure : / mmHG Vent. Rate : 063 BPM Atrial Rate : 063 BPM P-R Int : 168 ms QRS Dur : 094 ms QT Int : 408 ms P-R-T Axes : 050 017 035 degrees QTc Int : 417 ms NORMAL SINUS RHYTHM WITH SINUS ARRHYTHMIA CANNOT RULE OUT ANTERIOR INFARCT , AGE UNDETERMINED ABNORMAL ECG WHEN COMPARED WITH ECG OF 02-MAR-2018 21:34, NO SIGNIFICANT CHANGE WAS FOUND Confirmed by AGUILAR GRIMM, DEBBY ([id number]) on 12/19/2018 9:44:33 AM Referred By: Confirmed By:DEBBY SHEIKH MD
[2018-12-19] MEDS ORDERED: ASPIRIN 81 MG CHEWABLE TABLETS PO SCH (10:00)
[2018-12-19] MEDS ORDERED: ENOXAPARIN NA (PORCINE) 40 MG/0.4 ML DISP.SYRIN SQ SCH (10:00)
[2018-12-19] MEDS ORDERED: ASPIRIN 81 MG CHEWABLE TABLETS ONE (10:06)
[2018-12-19] MEDS ORDERED: ENOXAPARIN NA (PORCINE) 40 MG/0.4 ML DISP.SYRIN SQ ONE (10:06)
[2018-12-19 10:08] LABS: HEMATOCRIT 36.2 % (32.4-45.2); HEMOGLOBIN 12.7 GM/dL (10.7-15.3); MCH 28.7 pg (25.7-33.7); MEAN CELL VOLUME 82.1 fl (80-96); MEAN PLT VOLUME 7.8 fl (7.5-11.1); PLATELET COUNT 240 K/MM3 (134-434); RDW 15.3 % (11.6-15.6); WHITE BLOOD COUNT 5.3 K/mm3 (4.0-10.0)
[2018-12-19 10:39] LABS: URIC ACID 5.5 mg/dL (2.6-7.2)
[2018-12-19 10:41] LABS: CHOLESTEROL 251 mg/dL (50-200); HDL CHOLESTEROL 62 mg/dL (40-60); TRIGLYCERIDES 36 mg/dL (0-150)
[2018-12-19 10:46] LABS: ALBUMIN 3.3 g/dl (3.4-5.0); ALK PHOS 88 U/L (45-117); ANION GAP 5 MMOL/L (8-16); BILIRUBIN,TOTAL 0.8 mg/dL (0.2-1); BLOOD UREA NITROGEN 17.6 mg/dL (7-18); CALCIUM 8.7 mg/dL (8.5-10.1); CHLORIDE 109 mmol/L (98-107); CO2 29 mmol/L (21-32); CREATININE 0.6 mg/dL (0.55-1.3); GLUCOSE,RANDOM 81 mg/dL (74-106); POTASSIUM 4.5 mmol/L (3.5-5.1); SGOT/AST 20 U/L (15-37); SGPT/ALT 21 U/L (13-61); SODIUM 142 mmol/L (136-145); TOT PROT 6.9 g/dl (6.4-8.2)
--- NOTE | 2018-12-19 12:05 | CON.CARD ---
Cardiology Consult (text) - Consultation Consultation Note: cc: cp, headache hpi: 58 f hx hld, here with cp, headache. Past few days with intermittent LEON' s. Then yesterday had few brief episodes of cp. Pinching in center of chest for only a second at rest. No exertional sxs. No sob palps dizzy loc pnd orthopnea le edema. No further cp today. pmh: per hpi psh: none social: ex tob fam: no premature cad, scd ros: per hpi; some swelling in wrists; all others nl meds: Home Medications Medication Instructions Recorded Aspirin [ASA -] 81 mg PO DAILY 12/19/18 pe: Vital Signs Period Temp Pulse Resp BP Sys/[place]illo Pulse Ox Last 24 Hr 97.9 F-98.3 F 59-68 16-18 120-140/70-87 98-100 nad no jvd rrr s1s2 no mrg cta bl nl eff abd nt nd pos bs no jaundice diaphoresis pos dp pt no carotid bruits no le e/c/c aao3 Laboratory Last Values WBC 5.3 K/mm3 (4.0-10.0) 12/19/18 10:00 RBC 4.40 M/mm3 (3.60-5.2) 12/19/18 10:00 Hgb 12.7 GM/dL (10.7-15.3) 12/19/18 10:00 Hct 36.2 % (32.4-45.2) 12/19/18 10:00 MCV 82.1 fl (80-96) 12/19/18 10:00 MCH 28.7 pg (25.7-33.7) 12/19/18 10:00 MCHC 35.0 g/dl (32.0-36.0) 12/19/18 10:00 RDW 15.3 % (11.6-15.6) 12/19/18 10:00 Plt Count 240 K/MM3 (134-434) 12/19/18 10:00 MPV 7.8 fl (7.5-11.1) 12/19/18 10:00 Absolute Neuts (auto) 2.5 K/mm3 (1.5-8.0) 12/19/18 00:00 Neutrophils % 38.2 % (42.8-82.8) L 12/19/18 00:00 Lymphocytes % 51.7 % (8-40) H 12/19/18 00:00 Monocytes % 7.4 % (3.8-10.2) 12/19/18 00:00 Eosinophils % 1.9 % (0-4.5) D 12/19/18 00:00 Basophils % 0.8 % (0-2.0) 12/19/18 00:00 Nucleated RBC % 0 % (0-0) 12/19/18 00:00 PT with INR 13.10 SEC (9.7-13.0) H 12/19/18 00:00 INR 1.11 (0.83-1.09) H 12/19/18 00:00 D-Dimer 574 ng/ml (0-500) H 12/19/18 00:00 Sodium 142 mmol/L (136-145) 12/19/18 10:00 Potassium 4.5 mmol/L (3.5-5.1) 12/19/18 10:00 Chloride 109 mmol/L (98-107) H 12/19/18 10:00 Carbon Dioxide 29 mmol/L (21-32) 12/19/18 10:00 Anion Gap 5 MMOL/L (8-16) L 12/19/18 10:00 BUN 17.6 mg/dL (7-18) 12/19/18 10:00 Creatinine 0.6 mg/dL (0.55-1.3) 12/19/18 10:00 Est GFR (CKD-EPI)AfAm 114.82 12/19/18 10:00 Est GFR (CKD-EPI)NonAf 99.07 12/19/18 10:00 Random Glucose 81 mg/dL (74-106) 12/19/18 10:00 Hemoglobin A1c % 4.8 % (4.2-6.3) 12/19/18 10:00 Uric Acid 5.5 mg/dL (2.6-7.2) 12/19/18 10:00 Calcium 8.7 mg/dL (8.5-10.1) 12/19/18 10:00 Magnesium 2.3 mg/dL (1.8-2.4) 12/19/18 00:00 Total Bilirubin 0.8 mg/dL (0.2-1) 12/19/18 10:00 AST 20 U/L (15-37) 12/19/18 10:00 ALT 21 U/L (13-61) 12/19/18 10:00 Alkaline Phosphatase 88 U/L (45-117) 12/19/18 10:00 Creatine Kinase 146 U/L (26-192) 12/19/18 00:00 Troponin I < 0.02 ng/ml (0.00-0.05) 12/19/18 10:00 Total Protein 6.9 g/dl (6.4-8.2) 12/19/18 10:00 Albumin 3.3 g/dl (3.4-5.0) L 12/19/18 10:00 Triglycerides 36 mg/dL (0-150) 12/19/18 10:00 Cholesterol 251 mg/dL (50-200) H 12/19/18 10:00 Total LDL Cholesterol 163 mg/dL (5-100) H 12/19/18 10:00 HDL Cholesterol 62 mg/dL (40-60) H 12/19/18 10:00 TSH 2.10 uIU/ml (0.358-3.74) 12/19/18 10:00 Free T4 1.00 ng/dl (0.76-1.46) 12/19/18 10:00 Urine Color Yellow 12/19/18 00:05 Urine Appearance Clear 12/19/18 00:05 Urine pH 5.0 (5.0-8.0) 12/19/18 00:05 Ur Specific [place] 1.015 (1.010-1.035) 12/19/18 00:05 Urine Protein Negative (NEGATIVE) 12/19/18 00:05 Urine Glucose (UA) Negative (NEGATIVE) 12/19/18 00:05 Urine Ketones Negative (NEGATIVE) 12/19/18 00:05 Urine Blood Negative (NEGATIVE) 12/19/18 00:05 Urine Nitrite Negative (NEGATIVE) 12/19/18 00:05 Urine Bilirubin Negative (NEGATIVE) 12/19/18 00:05 Urine Urobilinogen 0.2 mg/dL (0.2-1.0) 12/19/18 00:05 Ur Leukocyte Esterase Negative (NEGATIVE) 12/19/18 00:05 cxr: clear lungs ecg: sr nl intervals no ischemic changes a/p: 58 f hx hld, here with cp, headache. cp: -atypical, resolved -trops negx2, ecg w/o ischemic changes -will eval further with echo and mibi, if benign ok for dc from cardiac pov hld: -diet control per pt headache: -head ct unremarkable -bp acceptable -plans per pmd
--- NOTE | 2018-12-19 13:59 | EKG ---
Test Reason : Blood Pressure : / mmHG Vent. Rate : 056 BPM Atrial Rate : 056 BPM P-R Int : 166 ms QRS Dur : 088 ms QT Int : 416 ms P-R-T Axes : 049 042 046 degrees QTc Int : 401 ms SINUS BRADYCARDIA OTHERWISE NORMAL ECG WHEN COMPARED WITH ECG OF 18-DEC-2018 21:49, NO SIGNIFICANT CHANGE WAS FOUND Confirmed by DEBBY SHEIKH MD ([id number]) on 12/19/2018 1:59:20 PM Referred By: Confirmed By:DEBBY SHEIKH MD
--- NOTE | 2018-12-19 14:57 | ECHO ---
Name: DEBBIE, PATIENCE Exam:Adult Echocardiogram Study Date: 12/19/2018 12:05 PM Age: 58 yrs Reason For Study: Chest pain Height: 63 in Weight: 216 lb BSA: 2.0 m2 MMode/2D Measurements & Calculations IVSd: 0.99 cm Ao root diam: 2.8 cm LVIDd: 3.9 cm LA dimension: 3.8 cm LVIDs: 2.9 cm ACS: 1.8 cm LVPWd: 1.2 cm EDV(Teich): 65.1 ml LVOT diam: 1.8 cm ESV(Teich): 32.1 ml RV S Jarvis: 11.1 cm/sec Doppler Measurements & Calculations MV E max jarvis: 123.4 cm/sec Ao V2 max: 179.2 cm/sec MV A max jarvis: 82.4 cm/sec Ao max P.8 mmHg MV E/A: 1.5 Ao V2 mean: 129.2 cm/sec Ao mean P.5 mmHg Ao V2 VTI: 39.6 cm CHAKA(I,D): 1.7 cm2 CHAKA(V,D): 1.4 cm2 LV V1 max P.8 mmHg SV(LVOT): 66.3 ml LV V1 mean P.3 mmHg LV V1 max: 97.7 cm/sec LV V1 mean: 71.7 cm/sec LV V1 VTI: 25.0 cm TR max jarvis: 219.9 cm/sec Med Peak E' Jarvis: 8.8 cm/sec TR max P.3 mmHg Med E/e': 14.1 RVSP(TR): 29.3 mmHg Lat Peak E' Jarvis: 11.3 cm/sec Lat E/e': 10.9 RAP systole: 10.0 mmHg Procedure A complete two-dimensional transthoracic echocardiogram was performed (2D, M-mode, Doppler and color flow Doppler). Left Ventricle The left ventricular size, thickness and function are normal. The left ventricular ejection fraction is normal. Ejection Fraction = 55-60%. The left ventricular wall motion is normal. Right Ventricle The right ventricle is normal in size and function. Atria Normal left and right atrial size and function. Mitral Valve There is no mitral regurgitation noted. Tricuspid Valve There is trace tricuspid regurgitation. There was insufficient TR detected to calculate RV systolic p ressure. Aortic Valve No hemodynamically significant valvular aortic stenosis. No aortic regurgitation is present. Pulmonic Valve There is no pulmonic valvular regurgitation. Great Vessels The aortic root is normal size. Pericardium/Pleura There is no pericardial effusion. Interpretation Summary The left ventricular size, thickness and function are normal The right ventricle is normal in size and function. There is trace tricuspid regurgitation. MD Bull Carey 12/19/2018 02:57 PM
[2018-12-19 15:36] VITALS: BP 116/72; PULSE 76
--- NOTE | 2018-12-19 17:06 | DS ---
Physical Exam: SUBJECTIVE: Patient seen and examined OBJECTIVE: 58 yo, hld, here with cp, headache. Past few days with intermittent LEON's. Then yesterday had few brief episodes of cp. Pinching in center of chest for only a second at rest. No exertional sxs. No sob palps dizzy loc pnd orthopnea le edema. No further cp today. Vital Signs Period Temp Pulse Resp BP Sys/[place] Pulse Ox Last 24 Hr 97.9 F-98.3 F 59-76 15-18 116-140/70-87 98-100 PHYSICAL EXAM GENERAL: The patient is awake, alert, and fully oriented, in no acute distress. HEAD: Normal with no signs of trauma. EYES: PERRL, extraocular movements intact, sclera anicteric, conjunctiva clear. ENT: Ears normal, nares patent, oropharynx clear without exudates, moist mucous membranes. NECK: Trachea midline, full range of motion, supple. LUNGS: Breath sounds equal, clear to auscultation bilaterally, no wheezes, no crackles, no accessory muscle use. HEART: Regular rate and rhythm, S1, S2 without murmur, rub or gallop. ABDOMEN: Soft, nontender, nondistended, normoactive bowel sounds, no guarding, no rebound, no hepatosplenomegaly, no masses. EXTREMITIES: 2+ pulses, warm, well-perfused, no edema. NEUROLOGICAL: Cranial nerves II through XII grossly intact. Normal speech, gait not observed. PSYCH: Normal mood, normal affect. SKIN: Warm, dry, normal turgor, no rashes or lesions noted. LABS Laboratory Results - last 24 hr 12/19/18 12/19/18 12/19/18 00:00 00:00 00:00 WBC 6.5 RBC 4.33 Hgb 12.2 Hct 35.6 MCV 82.1 MCH 28.3 MCHC 34.4 RDW 15.5 Plt Count 234 MPV 8.4 Absolute Neuts (auto) 2.5 Neutrophils % 38.2 L Lymphocytes % 51.7 H Monocytes % 7.4 Eosinophils % 1.9 D Basophils % 0.8 Nucleated RBC % 0 PT with INR INR D-Dimer Sodium 143 Potassium 4.2 Chloride 108 H Carbon Dioxide 28 Anion Gap 7 L BUN 21.7 H Creatinine 0.7 Est GFR (CKD-EPI)AfAm 109.15 Est GFR (CKD-EPI)NonAf 94.17 Random Glucose 91 Hemoglobin A1c % Uric Acid Calcium 8.5 Magnesium 2.3 Total Bilirubin 0.6 AST 22 ALT 22 Alkaline Phosphatase 90 Creatine Kinase 146 Troponin I < 0.02 Total Protein 7.0 Albumin 3.3 L Triglycerides Cholesterol Total LDL Cholesterol HDL Cholesterol TSH Free T4 Urine Color Urine Appearance Urine pH Ur Specific [place] Urine Protein Urine Glucose (UA) Urine Ketones Urine Blood Urine Nitrite Urine Bilirubin Urine Urobilinogen Ur Leukocyte Esterase 12/19/18 12/19/18 12/19/18 00:00 00:00 00:05 WBC RBC Hgb Hct MCV MCH MCHC RDW Plt Count MPV Absolute Neuts (auto) Neutrophils % Lymphocytes % Monocytes % Eosinophils % Basophils % Nucleated RBC % PT with INR 13.10 H INR 1.11 H D-Dimer 574 H Sodium Potassium Chloride Carbon Dioxide Anion Gap BUN Creatinine Est GFR (CKD-EPI)AfAm Est GFR (CKD-EPI)NonAf Random Glucose Hemoglobin A1c % Uric Acid Calcium Magnesium Total Bilirubin AST ALT Alkaline Phosphatase Creatine Kinase Troponin I Total Protein Albumin Triglycerides Cholesterol Total LDL Cholesterol HDL Cholesterol TSH Free T4 Urine Color Yellow Urine Appearance Clear Urine pH 5.0 Ur Specific [place] 1.015 Urine Protein Negative Urine Glucose (UA) Negative Urine Ketones Negative Urine Blood Negative Urine Nitrite Negative Urine Bilirubin Negative Urine Urobilinogen 0.2 Ur Leukocyte Esterase Negative 12/19/18 12/19/18 12/19/18 10:00 10:00 10:00 WBC 5.3 RBC 4.40 Hgb 12.7 Hct 36.2 MCV 82.1 MCH 28.7 MCHC 35.0 RDW 15.3 Plt Count 240 MPV 7.8 Absolute Neuts (auto) Neutrophils % Lymphocytes % Monocytes % Eosinophils % Basophils % Nucleated RBC % PT with INR INR D-Dimer Sodium 142 Potassium 4.5 Chloride 109 H Carbon Dioxide 29 Anion Gap 5 L BUN 17.6 Creatinine 0.6 Est GFR (CKD-EPI)AfAm 114.82 Est GFR (CKD-EPI)NonAf 99.07 Random Glucose 81 Hemoglobin A1c % 4.8 Uric Acid Calcium 8.7 Magnesium Total Bilirubin 0.8 AST 20 ALT 21 Alkaline Phosphatase 88 Creatine Kinase Troponin I < 0.02 Total Protein 6.9 Albumin 3.3 L Triglycerides Cholesterol Total LDL Cholesterol HDL Cholesterol TSH 2.10 Free T4 Urine Color Urine Appearance Urine pH Ur Specific [place] Urine Protein Urine Glucose (UA) Urine Ketones Urine Blood Urine Nitrite Urine Bilirubin Urine Urobilinogen Ur Leukocyte Esterase 12/19/18 12/19/18 10:00 10:00 WBC RBC Hgb Hct MCV MCH MCHC RDW Plt Count MPV Absolute Neuts (auto) Neutrophils % Lymphocytes % Monocytes % Eosinophils % Basophils % Nucleated RBC % PT with INR INR D-Dimer Sodium Potassium Chloride Carbon Dioxide Anion Gap BUN Creatinine Est GFR (CKD-EPI)AfAm Est GFR (CKD-EPI)NonAf Random Glucose Hemoglobin A1c % Uric Acid 5.5 Calcium Magnesium Total Bilirubin AST ALT Alkaline Phosphatase Creatine Kinase Troponin I Total Protein Albumin Triglycerides 36 Cholesterol 251 H Total LDL Cholesterol 163 H HDL Cholesterol 62 H TSH Free T4 1.00 Urine Color Urine Appearance Urine pH Ur Specific [place] Urine Protein Urine Glucose (UA) Urine Ketones Urine Blood Urine Nitrite Urine Bilirubin Urine Urobilinogen Ur Leukocyte Esterase HOSPITAL COURSE: Date of Admission:12/19/18 Date of Discharge: 12/19/18 a/p: 58 f hx hld, here with cp, headache. Chest pain -atypical, resolved -trops negx2, ecg w/o ischemic changes echo normal and mibi without ischemia C/w a low fat/cholesterol diet on discharge headache resolved -head ct [facility] Follow with PCP in 2 weeks Minutes to complete discharge: 35 Discharge Summary Problems reviewed: Yes Reason For Visit: CHEST PAIN Current Active Problems Chest pain (Acute) Suprapubic pain (Acute) Hospital Course: a/p: 58 f hx hld, here with cp, headache. Chest pain -atypical, resolved -trops negx2, ecg w/o ischemic changes echo normal and mibi without ischemia C/w a low fat/cholesterol diet on discharge headache resolved -head ct [facility] Health Concerns: high cholesterol Plan of Treatment: follow with PCP in 2 weeks Goals: chest pain resolved, MIBI nml, TTE nml Condition: Improved - Instructions Diet, Activity, Other Instructions: You were admitted to the ED with chest pain. All blood work was normal. Echocardioogram was normal and the stress test showed NO ISCHEMIA to the heart. Follow up with your primary care provider in 2 weeks. If the pain return call your PCP or return to the ED. No new medications were given. Resume your regulare diet at home Referrals: Enmanuel Sosa MD [Staff Physician] - Disposition: HOME - Home Medications Comprehensive Discharge Medication List: Ambulatory Orders Aspirin [ASA -] 81 mg PO DAILY 12/19/18 Aspirin [ASA -] 81 mg PO DAILY tab.chew 12/19/18 This patient is new to me today: Yes Date on this admission: 12/19/18 Emergency Visit: Yes ED Registration Date: 12/19/18 Care time: The patient presented to the Emergency Department on the above date and was hospitalized for further evaluation of their emergent condition. Critical Care patient: No - Discharge Referral Referred to [facility] Med P.C.: No
== END 2018-12-19 17:18 | disposition home or self-care (01) ==
LOC: JER 21:08 → JERBED 12-19 03:28
PROVIDERS: ADMIT Internal Medicine; ATTEND Nurse Practitioner Acute Care
PROC: 3E013GC Introduction of Other Therapeutic Substance into Subcutaneous Tissue, Percutaneous Approach (ICD-10-PCS; principal; 2018-12-19)
DX: R07.89 Other chest pain (principal); R51 Headache; R30.0 Dysuria; R35.8 Other polyuria; E78.5 Hyperlipidemia, unspecified; R77.0 Abnormality of albumin; E66.9 Obesity, unspecified; Z68.38 Body mass index [BMI] 38.0-38.9, adult
CPT/HCPCS: 36415; 70450-TC; 71046-TC-FY; 76775-TC; 76856-TC; 78452-TC; 80053; 80061; 81003; 82550; 83036; 83721; 83735; 84439; 84443; 84484; 84550; 85025; 85027; 85379; 85610; 86038; 87086; 93005; 93010; 93017; 93306-TC; 96372; 99285-25; A9502; G0378